=== PATIENT | male | born 1995 | race Caucasian/White ===

== ENCOUNTER 2021-08-06 21:52 | Emergency (ER) | payer BC, OTHER ==
[2021-08-06] MEDS: Baclofen 10 MG Tab PO ONE (22:38)
== END 2021-08-06 22:48 | disposition home or self-care (01) ==
LOC: FB.ED 21:52
DX: S39.012A Strain of muscle, fascia and tendon of lower back, initial encounter (principal); E66.9 Obesity, unspecified; Z88.0 Allergy status to penicillin; Z68.43 Body mass index [BMI] 50.0-59.9, adult; X58.XXXA Exposure to other specified factors, initial encounter
CPT/HCPCS: 99281; 99283; A9270-GY

== ENCOUNTER 2021-08-09 04:50 | Emergency (ER) | payer BC ==
[2021-08-09] MEDS: hydrOXYzine HCl 50 MG/ML SDV IM ONE (05:28)
[2021-08-09] MEDS: HYDROmorphone 2 MG/ML SDV IM ONE (05:28)
== END 2021-08-09 05:32 | disposition home or self-care (01) ==
LOC: FB.ED 04:50
DX: S39.012A Strain of muscle, fascia and tendon of lower back, initial encounter (principal); E66.9 Obesity, unspecified; Z68.43 Body mass index [BMI] 50.0-59.9, adult; Z88.0 Allergy status to penicillin
CPT/HCPCS: 96372; 99283; J1170; J3410